=== PATIENT | female | born 1995 | race Asian ===

== ENCOUNTER → 2021-07-19 | Outpatient (CLI) | payer BC ==
[~2021-07-19] MED LIST: NO HOME MEDICATIONS; PHENERGAN W/CO120 ML PO; TYLENOL 325MG325 MG PO; ZITHROMAX Z PA250 MG PO
[2021-07-19 08:21] LABS: CHOLESTEROL RISK RATIO 2.8
== END ==
LOC: COL.LAB 07:40
PROVIDERS: Family Medicine
DX: Z13.6 Encounter for screening for cardiovascular disorders (principal)